=== PATIENT | female | born 1965 | race African-American/Black ===

== ENCOUNTER → 2019-03-10 | Outpatient (CLI) | payer OTHER ==
--- NOTE | 2019-03-10 13:47 | CARD ---
MR#: [id number] Date of Study: 03/10/2019 Ordering Physician: DON FELICIANO, Referring Physician: DON FELICIANO Tech: Tonia Lewis RDCS APPROVED REPORT EXAM: LIMITED Two-dimensional echocardiogram Other Information Quality : Good INDICATION Breast Cancer 2D DIMENSIONS RVDd2.9 (2.9-3.5cm)Left Atrium(2D)3.5 (1.6-4.0cm) IVSd0.9 (0.7-1.1cm)Aortic Root(2D)2.9 (2.0-3.7cm) LVDd4.1 (3.9-5.9cm)LVOT Diameter2.0 (1.8-2.4cm) PWd0.8 (0.7-1.1cm)LVDs3.2 (2.5-4.0cm) FS (%) 27.0 %SV34.4 ml LVEF(%)55.0 (>50%) LEFT VENTRICLE Limited ECHO for LV function. The left ventricle is normal size. There is normal left ventricular wal l thickness. The left ventricular systolic function is normal and the ejection fraction is within nor mal range. The Ejection Fraction is 55-60%. There is normal LV segmental wall motion. PERICARDIAL EFFUSION There is no evidence of significant pericardial effusion. Critical Notification Critical Value: No <Conclusion> Limited ECHO for LV function. The left ventricle is normal size. The left ventricular systolic function is normal and the ejection fraction is within normal range. The Ejection Fraction is 55-60%. There is normal LV segmental wall motion. There is normal left ventricular wall thickness. Signed by : Clint Trotter MD Electronically Approved : 03/10/2019 13:47:10
== END | disposition home or self-care (01) ==
LOC: ECHO 12:40
PROVIDERS: ATTEND Internal Medicine Hematology & Oncology
DX: C50.212 Malignant neoplasm of upper-inner quadrant of left female breast (principal); Z17.0 Estrogen receptor positive status [ER+]
CPT/HCPCS: 93308